=== PATIENT | female | born 1935 ===

== ENCOUNTER 2017-12-14 00:10 | Inpatient (IN) | payer MEDICARE ==
--- NOTE | 2017-12-13 12:32 | HISTORY AND PHYSICAL ---
DATE OF ADMISSION: December 14, 2017 IDENTIFICATION, CHIEF COMPLAINT Marylu is an 82-year-old woman with chief complaint of left hip pain. HISTORY OF PRESENT ILLNESS Patient has a longstanding history of hip arthritis progressively painful and debilitating, refractory to conservative care. Surgery is indicated to relieve symptoms after failure of nonoperative measures. PAST MEDICAL HISTORY Notable for history of coronary artery disease status post PR, history of blood transfusion associated with childbirth, COPD. ALLERGIES No known allergies. CURRENT MEDICATIONS 1. Metoprolol 50 mg b.i.d. 2. Lisinopril 2.5 mg p.o. q.day. 3. Aspirin 81 mg p.o. q.day. 4. Atorvastatin 40 mg p.o. q.day. 5. Colace 100 mg p.o. b.i.d. 6. Lasix 20 mg p.o. q.day. 7. Plavix 75 mg p.o. q.day. PAST SURGICAL HISTORY Notable for appendectomy. SOCIAL HISTORY Negative for tobacco and alcohol use. FAMILY HISTORY Notable for mother and father with coronary artery disease as well as one brother with coronary artery disease and hypertension. REVIEW OF SYSTEMS: Notable for remote history of polio. PHYSICAL EXAMINATION GENERAL: This is a healthy elderly female who appears stated age. HEENT: She is normocephalic, atraumatic. NECK: Supple. LUNGS: Clear. HEART: Regular. ABDOMEN: Soft. ORTHOPEDIC EXAM: The left hip is very stiff at limits of rotation. She has an antalgic gait. Hip girdle strength is grossly normal. Skin envelope is intact. Calves nontender. Neurovascular function is intact. RADIOGRAPHIC DATA Radiographs demonstrate end-stage hip arthritis. ASSESSMENT Left hip end-stage degenerative joint disease, progressively painful and debilitating, refractory to conservative care. PLAN Per patient request, we are going to proceed with hip replacement. Nature of the procedure, risks, benefits, the anticipated rehab course were reviewed as well as nonoperative alternatives. The risks of the procedure include, but are not limited to, , major medical or anesthetic complication, infection, neurovascular injury, blood transfusion, stiffness, scarring, fracture, tendon rupture, instability, leg length discrepancy, implant loosening, migration or failure, persistent or recurrent pain, need for additional surgery, and other unforeseen. She understands and wishes to proceed. Signed permit was placed in the chart. Preoperative medical clearance is obtained. No guarantees are given or implied. [facility]
[2017-12-13 15:31] LABS: INR 1.01
[2017-12-14] VITALS (23 sets, daily range): BP systolic 72–112; BP diastolic 45–74
[~2017-12-14] VITALS: Ht 154.9 cm; Wt 47.2 kg
[~2017-12-14 00:10] MED LIST: ACET-1966 PO; ASCO1CAP7 PO; ASPI81TA94 PO; ATOR40TA24 PO; CALC-515 PO; CLOP75TA43 PO; DOCU-416 PO; FURO20TA19 PO; LISI5TAB25 PO; METO-253 PO; OMEG-96 PO; [UNRECOGNIZED DRUG - OTHER] PO; [UNRECOGNIZED DRUG - OTHER] PO
[2017-12-14] MEDS ORDERED: DEXAMETHASONE SOD 4 MG/ML VIAL ONE (09:08)
[2017-12-14] MEDS ORDERED: PROPOFOL EMUL(*) 10MG/ML 20 ML 20 ML ONE (09:08)
[2017-12-14] MEDS ORDERED: LIDOCAINE MPF 1% 5 ML VIAL ONE (09:08)
[2017-12-14] MEDS ORDERED: KETAMINE HCL 200 MG/20 ML MDV ONE ×2 (09:09→12:10)
[2017-12-14] MEDS ORDERED: fentaNYL CITR 100 MCG/2 ML AMP ONE ×2 (09:09→12:57)
[2017-12-14] MEDS ORDERED: ONDANSETRON 4 MG/2 ML VIAL ONE (09:09)
[2017-12-14] MEDS: NORMOSOL R SOLN(*) 1000 ML BAG 1,000 ML IV PRN ×2 (09:14→14:31)
[2017-12-14] MEDS ORDERED: cloNIDine EPIDUR INJ 100MCG/ML 40 MCG, ROPIVACAINE 0.5% 20 ML VIAL 25 ML, EPINEPHrine H... INJ ONE (10:15)
[2017-12-14] MEDS ORDERED: FAMOTIDINE 20 MG TAB PO ONE (10:15)
[2017-12-14] MEDS ORDERED: PREGABALIN 75 MG CAPSULE PO ONE (10:15)
[2017-12-14] MEDS ORDERED: ceFAZolin(*) 1 GM VIAL 1 GM in NS(*) 0.9% 100 ML ADDVANT BAG 100 ML IVPB ONE (10:15)
[2017-12-14] MEDS ORDERED: TRANEXAMIC AC 1000 MG/10ML SDV 1,000 MG in DEXTROSE 5% 50 ML BAG 50 ML IV ONE (10:15)
[2017-12-14] MEDS ORDERED: ACETAMINOPHEN 500 MG TAB PO ONE (10:15)
[2017-12-14] MEDS ORDERED: LIDOCAINE/SOD BICARB 8.4% SYR ID ONE (10:15)
[2017-12-14] MEDS ORDERED: CELECOXIB 200 MG CAP PO ONE (10:15)
[2017-12-14] MEDS ORDERED: MIDAZOLAM 2 MG/2 ML VIAL IVP PRN (10:15)
[2017-12-14] MEDS ORDERED: ASPIRIN 81 MG ENTERIC COATED PO ONE (11:05)
[2017-12-14] MEDS ORDERED: ROPIVACAINE 0.2% 20 ML VIAL ONE (11:12)
[2017-12-14] MEDS ORDERED: MIDAZOLAM 2 MG/2 ML VIAL ONE (11:12)
[2017-12-14] MEDS ORDERED: SUGAMMADEX SOD 200 MG/2 ML SDV ONE (11:17)
[2017-12-14] MEDS ORDERED: ROCURONIUM BROM 10 MG/ML 10 ML ONE (11:17)
[2017-12-14] MEDS ORDERED: LACTATED RINGER 3000 ML BAG IR ONE (12:11)
[2017-12-14] MEDS ORDERED: ePHEDrine 25 MG/5 ML DISP.SYR IVP ONE (13:05)
--- NOTE | 2017-12-14 14:38 | RADIOLOGY IMAGING REPORT ---
FACILITY[place] [facility] [place]IENT NAME: Marylu Ruvalcaba : 1935 MR: [id number] V: [id number] EXAM DATE: ORDERING PHYSICIAN: JAYDON RENTERIA TECHNOLOGIST: Location: [facility] - [place] Patient: Marylu Ruvalcaba : 1935 Visit/Account:[id number] Date of Sevice: 12/14/2017 EXAMINATION: AP pelvis. HISTORY: Post left OZ. COMPARISON: None. FINDINGS: Single AP view of the lower pelvis and bilateral hips was obtained. New surgical changes of left OZ. The acetabular and femoral components demonstrate normal alignment. No periprosthetic fracture. Overlying soft tissue swelling with skin wilmer in place. Generalized osteopenia. Advanced degenerative changes at the right hip. IMPRESSION: New surgical changes of left ZO, with an unremarkable postoperative appearance. Report Dictated By: Ruiz Dawn MD at 12/14/2017 2:33 PM Report E-Signed By: Ruiz Dawn MD at 12/14/2017 2:34 PM WSN:[id number]
[2017-12-14] MEDS ORDERED: DIAZEPAM 5 MG TAB PO PRN (16:40)
[2017-12-14] MEDS ORDERED: BENZOCAINE/MENTHOL 1 EACH LOZG PO PRN (16:40)
[2017-12-14] MEDS ORDERED: APAP/HYDROCODONE 325/7.5 TAB PO PRN (16:40)
[2017-12-14] MEDS ORDERED: PROMETHAZINE 25 MG/ML 1 ML AMP IVP PRN (16:40)
[2017-12-14] MEDS ORDERED: FLUSH 10 ML SYR IVP PRN (16:40)
[2017-12-14] MEDS ORDERED: BISACODYL 10 MG SUPP PR PRN (16:40)
[2017-12-14] MEDS ORDERED: NORMOSOL R SOLN(*) 1000 ML BAG 1,000 ML IV PRN (16:40)
[2017-12-14] MEDS ORDERED: diphenhydrAMINE 50 MG/ML VIAL IVP PRN (16:40)
[2017-12-14] MEDS ORDERED: diphenhydrAMINE 25 MG CAP PO PRN (16:40)
[2017-12-14] MEDS ORDERED: ZOLPIDEM TARTRATE 5 MG TAB PO PRN (16:40)
[2017-12-14] MEDS ORDERED: MAGNESIUM HYDROXIDE* 30ML UDCP PO PRN (16:40)
--- NOTE | 2017-12-14 16:41 | Hospitalist Consultation ---
History of Present Illness Requesting Physician Dr. Haile Reason for Consult CAD, Hyperlipidemia Chief Complaint s/p left total hip replacement History of Present Illness She was admitted s/p left total hip replacement. It is reported the surgery went well and without complication. History Problems: (1) CAD (coronary artery disease) Status: Chronic (2) Hyperlipidemia Status: Chronic Home Meds Reported Medications Acetaminophen (TYLENOL) 325 Mg Tablet, 325 MG PO TID Y for PAIN, TAB 12/07/17 Clopidogrel Bisulfate (PLAVIX) 75 Mg Tablet, 1 TAB PO QDAY, TAB 12/07/17 Furosemide (LASIX) 20 Mg Tablet, 1 TAB PO QDAY, TAB 12/07/17 Docusate Sodium (COLACE) 100 Mg Capsule, 100 MG PO BID, CAPSULE 12/07/17 Atorvastatin Calcium (LIPITOR) 40 Mg Tablet, 1 TAB PO HS, TAB 12/07/17 Aspirin (ASPIRIN) 81 Mg Tab.chew, 81 MG PO QDAY, TAB.CHEW 12/07/17 Lisinopril (LISINOPRIL) 5 Mg Tablet, 2.5 MG PO QDAY, TAB 12/07/17 Metoprolol Tartrate (METOPROLOL TARTRATE) 50 Mg Tab, 1 TAB PO BID, TAB 12/07/17 Discontinued Reported Medications Calcium Carbonate (TUMS) 200 Mg Tab.chew, 200 MG PO BID, TAB.CHEW 12/07/17 Ascorbic Acid/Collagen Hydr (COLLAGEN PLUS VIT C CAPSULE) 1 Each Capsule, 1 EACH PO DAILY, CAPSULE 04/27/17 [Biorepair] No Conflict Check, PO DAILY 04/27/17 [Gsh 3] No Conflict Check, PO DAILY 04/27/17 Waldron-3 Fatty Acids/Fish Oil (OMEGA 3 1,000 MG SOFTGEL) 1 Each Capsule, 1 EACH PO QDAY, CAPSULE 04/27/17 Allergies: Coded Allergies: lactose (Verified Allergy, Intermediate, "SICK", 04/27/17) Patient History: FH: COPD (chronic obstructive pulmonary disease) FATHER FH: heart disease FATHER GRANDMA Hx Smoking: No Smoking Status: Never Smoker Exposure to Second Hand Smoke?: Yes ( USED TO) Caffeine Intake: Coffee Caffeine/Cups Per Day: 1-2 Hx Alcohol Use: No Hx Substance Use Disorder: No Social Drug Use: Never History of IV Drug Use: No Review of Systems All Systems Reviewed/Normal: Yes, Except as Noted Exam Vital Signs Vital Signs Date Time Temp Pulse Resp B/P (MAP) Pulse Ox O2 Delivery O2 Flow Rate FiO2 12/14/17 14:59 96 Nasal Cannula 1.0 12/14/17 14:59 97.6 95 16 106/60 (75) General Appearance: Alert, Awake, No Acute Distress Neuro: No Gross deficits Cardiovascular: Regular Rate and Rhythm Respiratory: No Respiratory Distress, Clear to Auscultation Psych: Alert & Oriented X3, Appropriate Mood & Affect Assessment and Plan Problems: (1) Status post total hip replacement, left Status: Acute Assessment & Plan: Followed by Dr. Haile. She will be placed on Aspirin 325mg daily for DVT prophylaxis. She has no history of DVT or PE. (2) CAD (coronary artery disease) Status: Chronic Assessment & Plan: She has history of CABG and stent was placed 05/2017. She is on chronic treatment with Plavix, Aspirin, Metoprolol, Lasix and Lisinopril. The Metoprolol and Lisinopril have been restarted with hold parameters. She stopped the Plavix one week ago. We will speak with Dr. Haile for approval to re-start Plavix. (3) Hyperlipidemia Status: Chronic Assessment & Plan: She is on chronic treatment with Atorvastatin. Venous Thromboembolism Antithrombotics Is Pt On Any Antithrombotics?: No Exam Sepsis Risk: No Definite Risk JAIME ADKINS SAMPLE CARD MAKER Dec 14, 2017 16:41
[2017-12-14] MEDS: CELECOXIB 200 MG CAP PO SCH (16:58)
--- NOTE | 2017-12-14 20:00 | OPERATIVE REPORT 1 ---
EVENT DATE: December 14, 2017 SURGEON: Sravan Haile MD ANESTHESIOLOGIST: Aaron Singleton MD ANESTHESIA: General plus spinal. DIESEL TECHNOLOGY INSTRUCTOR: YULY Castellanos PREOPERATIVE DIAGNOSIS Left hip degenerative joint disease. POSTOPERATIVE DIAGNOSES 1. Left hip degenerative joint disease. 2. Full-thickness, partial width abductor tendon insertion tear. PROCEDURES PERFORMED 1. Left total hip arthroplasty. 2. Repair of torn abductor tendon. ESTIMATED BLOOD LOSS 200 mL DRAINS None. SPECIMENS None. COMPLICATIONS None apparent. IMPLANTS USED [employer] system with a Tritanium 50 mm cluster hole shell with a Trident X3 zero- degree poly insert to accommodate a 36 mm head and a single Torx 6.5 cancellous bone screw, a SecurFit Max 132-degree neck angle, hip stem size 8, and a Biolox Delta Ceramic C-Taper femoral head size 36 mm standard neck length, also a 2.9 JuggerKnot anchor for tendon repair. INDICATIONS Marylu has intractable pain and disability related to severely arthritic hip. Surgery is indicated to relieve symptoms after failure of nonoperative measures. DESCRIPTION OF PROCEDURE Patient was taken to the operating room, placed supine on the operating table. Spinal block is administered by the anesthesiologist. General anesthesia is induced. Antibiotics and TXA are administered IV. Patient is positioned in the right lateral decubitus position on a well-padded pegboard. Pelvis is secured in a vertical position. All bony prominences and superficial nerves are well padded. Left hip girdle and lower extremity are prepped and draped in the usual sterile fashion for hip arthroplasty. A posterolateral approach is made, carried down through the skin and subcutaneous tissue down to the deep fascia. Fascia is incised over the tip of the trochanter, extended distally in line with the femur, proximally in line with the wilbert fibers. Wilbert fibers are split bluntly. Trochanteric bursa is excised. Interval between the abductor and external rotator is identified, and the abductor mechanism is protected with a blunt Hohmann. An L capsulotomy/tenotomy is made with the superior limb just above the piriformis, extending down to the trochanter, and then releasing the external rotators and the capsule off the posterior aspect of the femur. These are tagged with #2 Vicryl for later anatomic reattachment. The femoral head is dislocated. Due to the markedly superiorly eroded acetabulum, the femoral head is saved for later bone graft. The femur is translocated anteriorly. Kristin-acetabular retractors are placed with the tips down on bone. Labrum and pulvinar are excised. The level of the transverse acetabular ligament is identified, and fibrinous debris is curetted out of the superior aspect of the acetabulum where the head has ridden up and eroded. Good anterior and posterior alaniz are present. Taking care to maintain the appropriate height of the socket, reaming starts at 44 and works up to 50 where good capture of the anterior and posterior alaniz is obtained. A trial 50 is nice, but there is no superior support. The femoral head is then shaped with a saw to provide a structural graft superiorly to help support the cup. Additional graft from the femoral head is morselized for cancellous autograft. The surfaces are copiously lavaged, and the Tritanium cup is impacted in approximately 40 degrees of lateral opening and 15 degrees of anteversion using the transverse acetabular ligament, extracorporeal guide, and internal bony landmarks to guide socket placement. A shelf of solid cancellous bone is placed superiorly and secured by the cup. Additional graft is packed around this, and then a 6.5 Torx screw is used to achieve adjuvant fixation to make sure this is rock solid. Good fixation is achieved. The liner is impacted into the cleaned and dried shell. Femoral preparation is undertaken. The neck is resected with a cookie cutter. A Jv awl finds the canal. Tapered reaming is performed up to size 8. Nice endosteal contact obtained. Broaching starts at 6 and works up to 8, taking care to lateralize and assure appropriate anteversion. The 8 broach has nice fit and fill and stability. Trial reduction is performed. Good buddhism of the limb length and stability are achievable without undue tension on the sciatic nerve. The broach is removed. The actual stem is impacted and seats at the same position. Trial reduction is performed with various neck lengths, and the standard is felt to be ideal. Alcaraz taper is lavaged and dried. The standard Biolox head is impacted onto the Alcaraz taper. Joint is reduced. Next, the condition of the abductors is inspected. On entry into the wound, it is noted that there is a full-thickness mid-substance tear of the medius with minimal retraction. Bone was repaired in this region down to punctate bleeding bone, and then a 2.9 JuggerKnot anchor is placed. It has solid purchase. Free needle is used to pass Warren-Srinath type stitches up through the tendon, and after passing these stitches and placing the drill holes for reattachment of the posterior capsule and piriformis, all suture limbs are passed. These are then tied down with surgeon knots to reapproximate the capsule and the external rotators and to repair the abductor mechanism. A nice repair is achieved. The wound is copiously lavaged. The deep fascia is closed distally with #2 Ethibond, proximally with #2 Vicryl. The subcutaneous tissue is lavaged. Hemostasis is assured. Derm is closed with 3-0 Vicryl, skin with surgical wilmer. Xeroform and 4 x 4's were applied for a dry, sterile dressing, and a hip wrap. Patient is rolled supine. Abduction pillow is placed. She is awakened from anesthesia and taken to the recovery room in stable condition having tolerated the procedure well. PLAN Plan is for standard OZ rehab protocol, but will defer any abductor strengthening for eight weeks. She may still weigh bear as tolerated, and standard hip precautions are indicated. [facility]
[2017-12-14] MEDS: ceFAZolin(*) 1 GM VIAL 1 GM in NS(*) 0.9% 100 ML ADDVANT BAG 100 ML IV SCH (20:13)
[2017-12-14] MEDS: METOPROLOL TART 50 MG TAB PO SCH (21:00)
[2017-12-14] MEDS: ATORVASTATIN 40 MG TAB PO SCH (21:14)
[2017-12-15] VITALS (36 sets, daily range): BP systolic 77–120; BP diastolic 48–76
[2017-12-15] MEDS: ACETAMINOPHEN 325 MG TAB PO PRN ×4 (01:42→21:38)
[2017-12-15] MEDS: ceFAZolin(*) 1 GM VIAL 1 GM in NS(*) 0.9% 100 ML ADDVANT BAG 100 ML IV SCH ×2 (03:37→11:17)
[2017-12-15] MEDS: CELECOXIB 200 MG CAP PO SCH ×2 (07:55→17:23)
[2017-12-15] MEDS: LISINOPRIL 5 MG TAB PO SCH (09:00)
[2017-12-15] MEDS: METOPROLOL TART 50 MG TAB PO SCH ×2 (09:00→21:00)
[2017-12-15] MEDS ORDERED: NORMOSOL R IV ONE (09:35)
[2017-12-15] MEDS: CLOPIDOGREL BISULFATE 75MG TAB PO SCH (10:05)
[2017-12-15] MEDS: ASPIRIN 325 MG TAB PO SCH (10:05)
[2017-12-15] MEDS ORDERED: NS(*) 0.9% 1000 ML BAG 1,000 ML IV ONE (10:45)
[2017-12-15 11:15] LABS: PLATELET COUNT, AUTOMATED 266 K/uL (150-450)
--- NOTE | 2017-12-15 12:05 | Hospitalist Progress Note ---
Subjective Progress Notes Subjective She was admitted s/p hip replacement. She reports she feels fatigued today, she is tachycardic and hypotensive. She denies chest pain or SOB. Patient Complains of: Cardiovascular: No: Chest Pain Respiratory: No: Shortness of Breath Physical Exam Vital Signs Date Time Temp Pulse Resp B/P (MAP) Pulse Ox O2 Delivery O2 Flow Rate FiO2 12/15/17 10:09 100/60 (73) 12/15/17 07:48 91 12/15/17 07:40 98.4 95 16 Nasal Cannula 0.5 Intake and Output 12/16/17 07:00 Intake Total 1600 ml Output Total 320 ml Balance 1280 ml Intake Oral 1100 ml IV Total 500 ml Output Urine Total 320 ml # Voids 1 General Appearance: Alert, Awake, No Acute Distress Neuro: No Gross deficits Cardiovascular: Other (regular rhythm, tachycardia noted) Respiratory: No Respiratory Distress, Clear to Auscultation GI: Soft and Non-Tender Extremities: Perfused, No Edema Psych: Alert & Oriented X3, Appropriate Mood & Affect Result Diagram: 12/15/17 1107 12/15/17 1107 Assessment and Plan Problems: (1) Status post total hip replacement, left Status: Acute Assessment & Plan: Followed by Dr. Haile. She will be placed on Aspirin 325mg daily for DVT prophylaxis. She has no history of DVT or PE. (2) CAD (coronary artery disease) Status: Chronic Assessment & Plan: She has history of CABG and stent was placed 05/2017. She is on chronic treatment with Plavix, Aspirin, Metoprolol, Lasix and Lisinopril. The Metoprolol and Lisinopril have been restarted with hold parameters. She stopped the Plavix one week ago, but will be restarted today. (3) Hyperlipidemia Status: Chronic Assessment & Plan: She is on chronic treatment with Atorvastatin. (4) Anemia Status: Acute Assessment & Plan: She was noted to have heart rates in the 130's, systolic blood pressures were 80-90's. Her hemoglobin was found to be 7.3. She is agreeable for transfusion of 2 units PRBC's today. We will watch her fluid volume status, as she normally does take Lasix at home. Exam Sepsis Risk: No Definite Risk JAIME ADKINS ALLERGY NURSE Dec 15, 2017 12:05
[2017-12-15] MEDS ORDERED: NS(*) 0.9% 500 ML BAG 500 ML ONE (13:23)
[2017-12-15] MEDS: ATORVASTATIN 40 MG TAB PO SCH (21:38)
[2017-12-16] VITALS (7 sets, daily range): BP systolic 102–131; BP diastolic 68–89; Ht 154.9 cm; Wt 47.2 kg
[2017-12-16 05:58] LABS: PLATELET COUNT, AUTOMATED 230 K/uL (150-450)
[2017-12-16] MEDS: LISINOPRIL 5 MG TAB PO SCH (09:00)
[2017-12-16] MEDS: METOPROLOL TART 50 MG TAB PO SCH ×2 (09:02→20:45)
[2017-12-16] MEDS: CELECOXIB 200 MG CAP PO SCH ×2 (09:02→16:34)
[2017-12-16] MEDS: CLOPIDOGREL BISULFATE 75MG TAB PO SCH (09:02)
[2017-12-16] MEDS: ASPIRIN 325 MG TAB PO SCH (09:02)
--- NOTE | 2017-12-16 11:02 | Hospitalist Progress Note ---
Subjective Progress Notes Subjective She reports much improvement in symptoms after transfusion. She had no acute events overnight. Patient Complains of: Cardiovascular: No: Chest Pain Respiratory: No: Shortness of Breath Physical Exam Vital Signs Date Time Temp Pulse Resp B/P (MAP) Pulse Ox O2 Delivery O2 Flow Rate FiO2 12/16/17 10:18 115/76 (89) 12/16/17 09:05 94 12/16/17 07:31 98.4 100 17 Nasal Cannula 0.5 Intake and Output 12/17/17 00:59 Intake Total 600 ml Output Total 600 ml Balance 0 ml Intake Oral 600 ml Output Urine Total 600 ml General Appearance: Alert, Awake, No Acute Distress, Afebrile Neuro: No Gross deficits Cardiovascular: Regular Rate and Rhythm Respiratory: No Respiratory Distress, Clear to Auscultation Extremities: Perfused, No Edema Psych: Alert & Oriented X3, Appropriate Mood & Affect Result Diagram: 12/16/17 0531 12/16/17 0531 Assessment and Plan Problems: (1) Status post total hip replacement, left Status: Acute Assessment & Plan: Followed by Dr. Haile. She will be placed on Aspirin 325mg daily for DVT prophylaxis. She has no history of DVT or PE. (2) CAD (coronary artery disease) Status: Chronic Assessment & Plan: She has history of CABG and stent was placed 05/2017. She is on chronic treatment with Plavix, Aspirin, Metoprolol, Lasix and Lisinopril. The Metoprolol and Lisinopril have been restarted with hold parameters. She stopped the Plavix one week ago, but will be restarted today. (3) Hyperlipidemia Status: Chronic Assessment & Plan: She is on chronic treatment with Atorvastatin. (4) Anemia Status: Acute Assessment & Plan: On 12/15, she was noted to have heart rates in the 130's, systolic blood pressures were 80-90's. Her hemoglobin was found to be 7.3. She was transfused 2 units of PRBC's. Her Hemoglobin is 11.3 today. Exam Sepsis Risk: No Definite Risk JAIME ADKINS CELLOPHANE PRESS OPERATOR Dec 16, 2017 11:02
[2017-12-16] MEDS: ACETAMINOPHEN 325 MG TAB PO PRN ×2 (15:06→20:45)
[2017-12-16] MEDS: ATORVASTATIN 40 MG TAB PO SCH (20:45)
[2017-12-17 02:55] VITALS: BP 113/62
[2017-12-17 06:34] LABS: PLATELET COUNT, AUTOMATED 218 K/uL (150-450)
[2017-12-17] MEDS: CELECOXIB 200 MG CAP PO SCH (08:37)
[2017-12-17] MEDS: LISINOPRIL 5 MG TAB PO SCH (09:00)
[2017-12-17] MEDS: METOPROLOL TART 50 MG TAB PO SCH (09:00)
[2017-12-17] MEDS ORDERED: ASPIRIN 81 MG ENTERIC COATED PO SCH (09:00)
[2017-12-17] MEDS: CLOPIDOGREL BISULFATE 75MG TAB PO SCH (09:38)
--- NOTE | 2017-12-17 10:54 | Hospitalist Progress Note ---
Subjective Progress Notes Subjective She was admitted s/p hip replacement. She had no acute events overnight. Patient Complains of: Cardiovascular: No: Chest Pain Respiratory: No: Shortness of Breath Physical Exam Vital Signs Date Time Temp Pulse Resp B/P (MAP) Pulse Ox O2 Delivery O2 Flow Rate FiO2 12/17/17 09:24 93 Room Air 12/17/17 03:41 106 12/17/17 02:55 98.1 16 113/62 (79) Intake and Output 12/18/17 00:59 Intake Total 160 ml Balance 160 ml Intake Oral 160 ml # Voids 3 # Bowel Movements 1 General Appearance: Alert, Awake, No Acute Distress Neuro: No Gross deficits Cardiovascular: Regular Rate and Rhythm Respiratory: No Respiratory Distress, Clear to Auscultation Extremities: No Edema Psych: Alert & Oriented X3, Appropriate Mood & Affect Result Diagram: 12/17/17 0520 12/16/17 0531 Assessment and Plan Problems: (1) Status post total hip replacement, left Status: Acute Assessment & Plan: Followed by Dr. Haile. She will be placed on Aspirin for DVT prophylaxis. She has no history of DVT or PE. (2) CAD (coronary artery disease) Status: Chronic Assessment & Plan: She has history of CABG and stent was placed 05/2017. She is on chronic treatment with Plavix, Aspirin, Metoprolol, Lasix and Lisinopril. The Metoprolol and Lisinopril have been restarted with hold parameters. She stopped the Plavix one week prior to surgery, but has been restarted. (3) Hyperlipidemia Status: Chronic Assessment & Plan: She is on chronic treatment with Atorvastatin. (4) Anemia Status: Acute Assessment & Plan: On 12/15, she was noted to have heart rates in the 130's, systolic blood pressures were 80-90's. Her hemoglobin was found to be 7.3. She was transfused 2 units of PRBC's. Hgb stable currently. Continue to monitor CBC 's. Exam Sepsis Risk: No Definite Risk JAIME ADKINS REPLENISHMENT ANALYST Dec 17, 2017 10:54
== END 2017-12-17 10:10 | DRG 470 ==
LOC: OR 00:10 → MED 14:50
PROVIDERS: ADMIT Orthopaedic Surgery; ATTEND Orthopaedic Surgery
PROC: 0SRB04Z Replacement of Left Hip Joint with Ceramic on Polyethylene Synthetic Substitute, Open Approach (ICD-10-PCS; principal; 2017-12-14 11:26)
PROC: 0LQK0ZZ Repair Left Hip Tendon, Open Approach (ICD-10-PCS; 2017-12-14 11:26)
PROC: 30233N1 Transfusion of Nonautologous Red Blood Cells into Peripheral Vein, Percutaneous Approach (ICD-10-PCS; 2017-12-15)
DX: M16.12 Unilateral primary osteoarthritis, left hip (principal); D62 Acute posthemorrhagic anemia; I25.10 Atherosclerotic heart disease of native coronary artery without angina pectoris; S76.212A Strain of adductor muscle, fascia and tendon of left thigh, initial encounter; I25.2 Old myocardial infarction; I10 Essential (primary) hypertension; I95.9 Hypotension, unspecified; E78.5 Hyperlipidemia, unspecified; E73.9 Lactose intolerance, unspecified; J44.9 Chronic obstructive pulmonary disease, unspecified; Z79.82 Long term (current) use of aspirin; Z86.12 Personal history of poliomyelitis; Z95.1 Presence of aortocoronary bypass graft; Y83.8 Other surgical procedures as the cause of abnormal reaction of the patient, or of later complication, without mention of misadventure at the time of the procedure; Y79.3 Surgical instruments, materials and orthopedic devices (including sutures) associated with adverse incidents; Y92.239 Unspecified place in hospital as the place of occurrence of the external cause
CPT/HCPCS: 36415; 36430; 72170; 76942; 82040; 82247; 82310; 82374; 82435; 82565; 82947; 84075; 84132; 84155; 84295; 84450; 84460; 84520; 85025; 85610; 86850; 86900; 86901; 86920; 97161; C1713; C1776; J0171; J0690; J0735; J1100; J1885; J2001; J2250; J2405; J2704; J2795; J3010; J3490; J7030; J7040; J7050; P9016; Q0163

== ENCOUNTER 2017-12-17 10:10 | Inpatient (IN) | payer MEDICARE ==
[2017-12-16 14:01] VITALS: Ht 154.9 cm; Wt 52.6 kg
[~2017-12-17] VITALS: Ht 154.9 cm; Wt 52.6 kg
[2017-12-17] MEDS ORDERED: MAGNESIUM HYDROXIDE* 30ML UDCP PO PRN (10:24)
[2017-12-17] MEDS ORDERED: BISACODYL 10 MG SUPP PR PRN (10:24)
[2017-12-17] MEDS ORDERED: BENZOCAINE/MENTHOL 1 EACH LOZG PO PRN (10:24)
[2017-12-17] MEDS ORDERED: APAP/HYDROCODONE 325/7.5 TAB PO PRN (10:24)
[2017-12-17] MEDS ORDERED: DIAZEPAM 5 MG TAB PO PRN (10:28)
[2017-12-17 10:33] VITALS: BP 98/69
--- NOTE | 2017-12-17 10:41 | Consultant Pharmacy Review ---
Shop Tailor Review Medication Review Do All Mecications have a Diag: Yes Beers Criteria Medication 2014 Benzodiazapines (long acting): Diazepam (Q6H as needed for pain) Other General Cautions Lexicomp Interaction Analysis A = No known interaction C = Monitor therapy X = Avoid combination B = No action needed D = Consider therapy modification Drugs in this analysis: Acetaminophen; Aspirin; Bisacodyl; Cepacol (CAN); Lipitor; Lortab; Metoprolol; Milk of Magnesia [OTC]; Plavix; Prinivil; Valium * Drug-Drug Interactions D Bisacodyl Milk of Magnesia [OTC] (Antacids) D Lortab (HYDROcodone) Valium (MEDICAL ASSISTANT SECRETARY Depressants) C Aspirin (Agents with Antiplatelet Properties) Plavix (Agents with Antiplatelet Properties) Depends on International labeling C Aspirin (Salicylates) Plavix (Agents with Antiplatelet Properties) C Aspirin (Salicylates) Prinivil (Angiotensin-Converting Enzyme Inhibitors) B Acetaminophen Lortab (Opioid Analgesics) B Aspirin (Salicylates) Milk of Magnesia [OTC] (Antacids) Depends on Duration B Lipitor (AtorvaSTATin) Plavix (Clopidogrel) B Metoprolol Valium (DiazePAM) B Milk of Magnesia [OTC] (Antacids) Valium (DiazePAM) Pneumococcal Vaccine HX Pneumo Vac ([id number]): No HX Pneumo Vac (Pneumovax): No Comments Regarding the Review Patient is a candidate for Pneumococcal vaccination but may be refusing vaccination as she never gets influenza shot. If she is willing to receive she should get the Prevnar 13 before discharge. Please monitor patient for falls due to Lortab and Valium orders. Please re-evaluate the necessity of these medications every week to 2 weeks. She should not receive more than 3 gms of acetaminophen in 24 hours and has orders for both acetaminophen 650 mg and Lortab 7.5/325. MD Notified? MD Notified?: No NATALIO JOSE Dec 17, 2017 10:41
--- NOTE | 2017-12-17 12:35 | Medical Nutrition Therapy ---
Nutrition Anthropometrics Height (Inches): 61 (stated) Weight (Pounds): 104 (wt 12/16 on med unit) BMI: 19.6 Hawk Nutrition Score: Hawk Nutrition Risk Score: Dietary Referral Nutrition Risk Factors: Nutrition Risk Comment: Physical Findings Physical Appearance: lower end of desired range Skin Appearance Skin Appearance: Edema Edema Location Modifier: Edema Location: Type of Edema: Degree of Edema: Gastrointestinal Symptoms GI Symtoms: Tube Present: Bowel Sounds: Recent Bowel Pattern: Stool Characteristics: Nutritional Diagnosis Nutritional Risk Acuity 3: Fair Appetite, OR & > 80 yrs Past Medical History: CAD, CABG, stent x 1 Nutritional Acuity: 3-Mild Energy Requirement: 1100 Protein Requirement: 52 (1.1gm/kg) Fluid Requirement: 1175 (25ml/kg) Diet Type: Diet as Tolerated MIESHA/REG Nutrition Intervention: Cont diet as ordered, Encourage intake, Between meal supplement Drug: Diuretics Additional Diet Restrictions: PUT PROTEIN POWDER IN APPROPRIATE FOODS Diet Comment To RSA: CARLOS NUTR SUPPLEMENT Nutrition Monitoring & Eval Nutrition Goals: Eat 50-100% Meal RD Patient Assessment Time: [address] Assessment Type: RD Assessment Patient Nutrition Acuity: 3-Mild Follow Up Date: Dec 21, 2017 Nutritional Comment: 12/17 Pt admitted s/p hip replacement. Intake on med unit averaged 88% of small to regular portions. Alb depleted at 2.5 and pt is on low end of desired wt range. Will put protein powder in appropriate foods and offer nutr supplment to increased kcal and protein intake. Pt on K+ depleting duiretic on ZK+ was WNR at 4.1. Will cont to monitor and encourage intake. CLAY SAUCEDO Dec 17, 2017 12:35
--- NOTE | 2017-12-17 13:03 | OT ECF NOTE ---
Type of Note: Initial Note Primary Medical Diagnosis: Generalized weakness s/p left OZ Occupational Therapy Evaluation Date: 12/17/17 SUBJECTIVE: Prior Hospitalization: [facility] 12/14/17 thru 12/17/17. DOS: 12/14/[address] Haile Prior Level of Function: Modified Independent with all ADLs/IADLs Prior Living Status: Bi-level house, Spouse Community Services: No known needs Home Accessibility: All needs on one level, Tub/shower combination Equipment Owned: Rollator Toilet riser Extended tub bench Duplicating Machine Operator Medical Complications/Past Medical History: Hx of CABG with stent (2017) , CAD, Hyperlipidemia. Please refer to EMR for further details. Psychosocial Support: Spouse Pain Scale (0-10): None reported at time of evaluation OBJECTIVE: Strength: MMT: Right Left Shoulder Flexion WFL WFL Elbow Flexion WFL WFL Wrist Extension WFL WFL Dispute Resolution Specialist WFL WFL (5= normal, 4= good, 3= fair, 2= poor, 1= trace) ROM: Both upper extremities, WFL Functional Transfer: Assistive Device: Front wheeled walker, Gait belt Transfer Ability: Verbal cues, CGA ADL: Upper body dressing: Assistive device: None Upper body dressing ability: Minimum assistance Lower body dressing: Assistive device: Duplicating Machine Operator, Sock aid Lower body dressing ability: Moderate assistance. Pt with limited awareness for importance of LB AE for dressing. Toileting: Assistive device: Toileting ability: N/T Grooming/hygiene: Assistive device: Grooming ability: N/T Bathing: Assistive device: Bathing ability: N/T Standardized Assessment: Glenny Index of Activities of Daily Livin/20 at initial evaluation (). ASSESSMENT: Angel presents to [facility] with generalized weakness s/p L THR complicated by anemia and subsequent blood transfusion. She recalls 2/3 hip precautions but requires frequent v/c's for understanding and adherence. Currently, she requires increased assist for ADLs/IADLs. At [facility], she was (I) with all ADLs/IADLs. She will benefit from skilled OT services to optimize (I) with ADLs and activity tolerance for IADLs prior to discharge home. Problem List/Current Limitations: Pain Decreased strength Decreased ROM Generalized weakness Poor safety awareness Short Term Goals: 1) Pt will be Mod (I) LB dressing. 2) Pt will be SBA grooming/hygiene. 3) Pt will be SBA toilet task. 4) Pt will be SBA bathing. 5) Pt Glenny of ADLs score will improve by 2 points. 6) Pt will be educated on appropriate AE needs. Snf Goals: Return home Patient Goals: "walk better and do stairs" Rehabilitation Prognosis: Good Barriers to Discharge: Pain, Age, Adherence to posterior hip precautions PLAN: The patient will benefit from skilled occupational therapy services 5 times per week for 2 weeks including: Ther ex ADL training Safety training Ther act IADL training Transfer training Adaptive equip training Bed mobility Energy conservation Thank you for this referral. If you have any questions, concerns, or comments about this report or plan, please contact me at . Lulu Collins MS, OTR/L Occupational Therapist REJI
--- NOTE | 2017-12-17 15:01 | PT ECF NOTE ---
Type of Note: Initial Note Primary Medical Diagnosis: S/P L) OZ, WBAT Physical Therapy Evaluation Date: 12/17/17 SUBJECTIVE: Prior Hospitalization: [facility] 12/14/17-12/17/17 Prior Level of Function: Michelle with use of 4WW, assistance from spouse as needed Prior Living Status: Single level house, Spouse Community Services: No known needs Home Accessibility: 3 stairs with rails Equipment Owned: Rollator Medical Complications/Past Medical History: See EMR for details, CABG (May 2017) with stent placement Psychosocial Support: Supportive and son Pain Scale (0-10): 4/10 OBJECTIVE: Strength: Right Lower Extremity: DF: 4/5 Knee flexion: 4/5 Knee extension: 4/5 Hip flexion: NT Left Lower Extremity: DF: 4/5 Knee flexion: 3+/5 Knee extension: 3/5 Hip flexion: NT ROM: L LE hip ROM limited by posterior hip precautions Sensation: WNL Other Neuro findings: None Bed Mobility: Sue sit to supine Transfers: CGA with RW and verbal cues to prevent excessive hip flexion Gait: CGA with RW x55' Stairs: NT Gait Speed (0.6m/second cannot function independently): 0.2 m/sec ASSESSMENT: PT ECF eval complete. Pt is pleasant and eager to participate in therapy interventions. She requires verbal cues during STS transfers and transitions in order to prevent excessive hip flexion. Pt completed transfers with CGA and ambulated 55' with use of RW. Pt demonstrates antalgic gait pattern with mild path deviation, ambulating with a gait speed of 0.2 m/sec, indicating an increased risk of falls and need of assistance from others. The patient will benefit from skilled PT services in order to increase independence and safety prior to d/c home. Problem List/Current Limitations: Pain Decreased activity radha Decreased strength Decreased ROM Decreased balance Poor safety awareness Decreased problem solving Short Term Goals: 1: Pt to complete bed mobility with Michelle while adhering to posterior hip precautions 2: Pt to complete transfers with Michelle and least restrictive AD 3: Pt to ambulate 200' with SBA and least restrictive AD 4: Pt to asc/desc 4 stairs with railing and SBA 5: Pt to demonstrate adherence to posterior hip precautions with all functional mobility. Welt Insole Channeler Goals: Pt to discharge home with improved safety and decreased need of assistance from others Patient Goals: To get better Rehabilitation Prognosis: Good Barriers for Discharge: Difficulty recalling posterior hip precautions PLAN: The patient will benefit from skilled physical therapy services 5 times per week for 2 weeks including: Therapeutic Exercise Therapeutic Activities Transfer Training Gait Training Stair Training Manual Therapy Safety Training Neuromuscular Re-educ. Pt/Caregiver Training Bed Mobility Thank you for this referral. If you have any questions, concerns, or comments about this report or plan, please contact me at . Linda Cobb, PT, DPT [facility]
[2017-12-17 16:30] VITALS: BP 118/73
[2017-12-17] MEDS: ACETAMINOPHEN 325 MG TAB PO PRN ×2 (16:32→22:30)
[2017-12-17] MEDS: METOPROLOL TART 50 MG TAB PO SCH (20:19)
[2017-12-17] MEDS: ATORVASTATIN 40 MG TAB PO SCH (20:19)
[2017-12-17] MEDS: DOCUSATE SODIUM 100 MG CAP PO SCH (20:19)
[2017-12-18 05:52] LABS: PLATELET COUNT, AUTOMATED 287 K/uL (150-450)
[2017-12-18 08:04] VITALS: BP 110/70
[2017-12-18] MEDS: FUROSEMIDE 20 MG TAB PO SCH (08:42)
[2017-12-18] MEDS: METOPROLOL TART 50 MG TAB PO SCH ×2 (08:42→20:59)
[2017-12-18] MEDS: LISINOPRIL 5 MG TAB PO SCH (08:43)
[2017-12-18] MEDS: ASPIRIN 325 MG ENTERIC COATED PO SCH (08:45)
[2017-12-18] MEDS: DOCUSATE SODIUM 100 MG CAP PO SCH ×2 (08:45→20:59)
[2017-12-18] MEDS: CLOPIDOGREL BISULFATE 75MG TAB PO SCH (08:45)
[2017-12-18] MEDS ORDERED: ASPIRIN 81 MG CHEW CHEW SCH (09:00)
[2017-12-18] MEDS: ACETAMINOPHEN 325 MG TAB PO PRN ×2 (13:33→20:59)
[2017-12-18 15:24] VITALS: BP 113/66
[2017-12-18] MEDS: ATORVASTATIN 40 MG TAB PO SCH (20:59)
[2017-12-19] MEDS: ACETAMINOPHEN 325 MG TAB PO PRN ×2 (00:59→20:20)
[2017-12-19 06:12] LABS: PLATELET COUNT, AUTOMATED 294 K/uL (150-450)
[2017-12-19 07:58] VITALS: BP 125/73
[2017-12-19] MEDS: METOPROLOL TART 50 MG TAB PO SCH ×2 (09:00→20:20)
[2017-12-19] MEDS: FUROSEMIDE 20 MG TAB PO SCH (09:00)
[2017-12-19] MEDS: LISINOPRIL 5 MG TAB PO SCH (09:00)
[2017-12-19] MEDS: ASPIRIN 325 MG ENTERIC COATED PO SCH (09:04)
[2017-12-19] MEDS: CLOPIDOGREL BISULFATE 75MG TAB PO SCH (09:04)
[2017-12-19] MEDS: DOCUSATE SODIUM 100 MG CAP PO SCH ×2 (09:04→20:20)
[2017-12-19 15:52] VITALS: BP 109/78
[2017-12-19 20:10] VITALS: BP 108/75
[2017-12-19] MEDS: ATORVASTATIN 40 MG TAB PO SCH (20:20)
[2017-12-20] MEDS: ACETAMINOPHEN 325 MG TAB PO PRN ×4 (01:52→20:43)
[2017-12-20 06:06] LABS: PLATELET COUNT, AUTOMATED 350 K/uL (150-450)
[2017-12-20 08:40] VITALS: BP 107/66
[2017-12-20] MEDS: DOCUSATE SODIUM 100 MG CAP PO SCH ×2 (09:00→20:43)
[2017-12-20] MEDS: METOPROLOL TART 50 MG TAB PO SCH ×2 (09:00→20:41)
[2017-12-20] MEDS: FUROSEMIDE 20 MG TAB PO SCH (09:00)
[2017-12-20] MEDS: LISINOPRIL 5 MG TAB PO SCH (09:00)
[2017-12-20] MEDS: CLOPIDOGREL BISULFATE 75MG TAB PO SCH (09:11)
[2017-12-20] MEDS: ASPIRIN 325 MG ENTERIC COATED PO SCH (09:11)
[2017-12-20 17:05] VITALS: BP 105/73
[2017-12-20 20:30] VITALS: BP 106/68
[2017-12-20] MEDS: ATORVASTATIN 40 MG TAB PO SCH (20:43)
[2017-12-21] MEDS: ACETAMINOPHEN 325 MG TAB PO PRN ×3 (02:13→20:39)
--- NOTE | 2017-12-21 06:46 | HISTORY AND PHYSICAL ---
DATE OF ADMISSION: December 14, 2017 IDENTIFICATION, CHIEF COMPLAINT Marylu is an 82-year-old woman with chief complaint of left hip pain. HISTORY OF PRESENT ILLNESS Patient has a longstanding history of hip arthritis progressively painful and debilitating, refractory to conservative care. Surgery is indicated to relieve symptoms after failure of nonoperative measures. PAST MEDICAL HISTORY Notable for history of coronary artery disease status post [place], history of blood transfusion associated with childbirth, COPD. ALLERGIES No known allergies. CURRENT MEDICATIONS 1. Metoprolol 50 mg b.i.d. 2. Lisinopril 2.5 mg p.o. q.day. 3. Aspirin 81 mg p.o. q.day. 4. Atorvastatin 40 mg p.o. q.day. 5. Colace 100 mg p.o. b.i.d. 6. Lasix 20 mg p.o. q.day. 7. Plavix 75 mg p.o. q.day. PAST SURGICAL HISTORY Notable for appendectomy. SOCIAL HISTORY Negative for tobacco and alcohol use. FAMILY HISTORY Notable for mother and father with coronary artery disease as well as one brother with coronary artery disease and hypertension. REVIEW OF SYSTEMS: Notable for remote history of polio. PHYSICAL EXAMINATION GENERAL: This is a healthy elderly female who appears stated age. HEENT: She is normocephalic, atraumatic. NECK: Supple. LUNGS: Clear. HEART: Regular. ABDOMEN: Soft. ORTHOPEDIC EXAM: The left hip is very stiff at limits of rotation. She has an antalgic gait. Hip girdle strength is grossly normal. Skin envelope is intact. Calves nontender. Neurovascular function is intact. RADIOGRAPHIC DATA Radiographs demonstrate end-stage hip arthritis. ASSESSMENT Left hip end-stage degenerative joint disease, progressively painful and debilitating, refractory to conservative care. PLAN Per patient request, we are going to proceed with hip replacement. Nature of the procedure, risks, benefits, the anticipated rehab course were reviewed as well as nonoperative alternatives. The risks of the procedure include, but are not limited to, , major medical or anesthetic complication, infection, neurovascular injury, blood transfusion, stiffness, scarring, fracture, tendon rupture, instability, leg length discrepancy, implant loosening, migration or failure, persistent or recurrent pain, need for additional surgery, and other unforeseen. She understands and wishes to proceed. Signed permit was placed in the chart. Preoperative medical clearance is obtained. No guarantees are given or implied. D/T: [id number] JOHNNY/DODIE CC: H&P ADDENDUM The above issues are resolving. Patient requires senior care care and/or skilled rehabilitation. Patient is ready for transfer to Extended Care. Any change in condition is described below. [facility]
[2017-12-21 08:00] VITALS: BP 111/77
[2017-12-21] MEDS: ASPIRIN 325 MG ENTERIC COATED PO SCH (08:47)
[2017-12-21] MEDS: CLOPIDOGREL BISULFATE 75MG TAB PO SCH (08:47)
[2017-12-21] MEDS: DOCUSATE SODIUM 100 MG CAP PO SCH ×2 (08:47→08:50)
[2017-12-21] MEDS: LISINOPRIL 5 MG TAB PO SCH (08:56)
[2017-12-21] MEDS: FUROSEMIDE 20 MG TAB PO SCH (08:56)
[2017-12-21] MEDS: METOPROLOL TART 50 MG TAB PO SCH ×2 (08:56→20:39)
--- NOTE | 2017-12-21 09:45 | Medical Nutrition Therapy ---
Nutrition Anthropometrics Height (Inches): 61.00 Height (Calculated Centimeters: 154.140306 Weight (Pounds): 116 Weight (Calculated Kilograms): 52.617 BMI: 19.6 Hawk Nutrition Score: Adequate Hawk Nutrition Risk Score: 18 Dietary Referral Nutrition Risk Factors: Nutrition Risk Comment: Physical Findings Physical Appearance: lower end of desired range Skin Appearance Skin Appearance: Edema Edema Location Modifier: Left Edema Location: Leg Type of Edema: Degree of Edema: Gastrointestinal Symptoms GI Symtoms: Tube Present: Bowel Sounds: Recent Bowel Pattern: Stool Characteristics: Nutritional Diagnosis Nutritional Risk Acuity 3: Fair Appetite, OR & > 80 yrs Past Medical History: CAD, CABG, stent x 1 Nutritional Acuity: 3-Mild Energy Requirement: 1100 Protein Requirement: 52 (1.1gm/kg) Fluid Requirement: 1175 (25ml/kg) Diet Type: Diet as Tolerated MIESHA/REG Nutrition Intervention: Cont diet as ordered, Encourage intake, Between meal supplement Drug: Diuretics Additional Diet Restrictions: PUT PROTEIN POWDER IN APPROPRIATE FOODS Diet Comment To RSA: CARLOS NUTR SUPPLEMENT Nutrition Monitoring & Eval Nutrition Goals: Eat 50-100% Meal Nutrition Follow-Up: Good Intake RD Patient Assessment Time: [address] Assessment Type: RD Re-Assessment Patient Nutrition Acuity: 3-Mild Follow Up Date: Dec 28, 2017 Nutritional Comment: 12/17 Pt admitted s/p hip replacement. Intake on med unit averaged 88% of small to regular portions. Alb depleted at 2.5 and pt is on low end of desired wt range. Will put protein powder in appropriate foods and offer nutr supplment to increased kcal and protein intake. Pt on K+ depleting duiretic on ZK+ was WNR at 4.1. Will cont to monitor and encourage intake. ROGELIO 12/21 Pt on regular diet and intake averaged 75% past 3 days. Wt is up to 116#. Pt weighed 104# on med unit 12/16 and 113# on ECF 12/16. Believe wt gain id r/t difference in scale plus fluids. Pt is on a duiretic with non-pitting edema to leg. Anticipate wt loss when edema resolved. CLAY SAUCEDO Dec 21, 2017 09:45
[2017-12-21 16:20] VITALS: BP 99/72
[2017-12-21 19:50] VITALS: BP 116/76
[2017-12-21] MEDS: ATORVASTATIN 40 MG TAB PO SCH (20:39)
[2017-12-22] MEDS: ACETAMINOPHEN 325 MG TAB PO PRN ×3 (02:32→20:52)
[2017-12-22 08:00] VITALS: BP 104/61
[2017-12-22] MEDS: ASPIRIN 325 MG ENTERIC COATED PO SCH (08:45)
[2017-12-22] MEDS: CLOPIDOGREL BISULFATE 75MG TAB PO SCH (08:45)
[2017-12-22] MEDS: LISINOPRIL 5 MG TAB PO SCH (09:00)
[2017-12-22] MEDS: DOCUSATE SODIUM 100 MG CAP PO SCH ×2 (09:00→20:51)
[2017-12-22] MEDS: METOPROLOL TART 50 MG TAB PO SCH ×2 (09:00→20:52)
[2017-12-22] MEDS: FUROSEMIDE 20 MG TAB PO SCH (09:00)
[2017-12-22 12:27] VITALS: BP 119/80
[2017-12-22] MEDS ORDERED: ASPI-764 PO (12:35)
--- NOTE | 2017-12-22 12:47 | Hospitalist Progress Note ---
Subjective Progress Notes Subjective Patient complains of some LE edema. She has not been getting her Lasix daily due to BP parameters. Physical Exam Vital Signs Date Time Temp Pulse Resp B/P (MAP) Pulse Ox O2 Delivery O2 Flow Rate FiO2 12/22/17 12:27 109 12/22/17 08:00 94 Room Air 12/22/17 08:00 97.9 16 104/61 (75) Intake and Output 12/23/17 07:00 Intake Total 360 ml Balance 360 ml Intake Oral 360 ml # Voids 1 General Appearance: Alert, Awake, No Acute Distress, Afebrile Neuro: No Gross deficits Eyes: PERRLA Cardiovascular: Other (Tachy, regular. Pulse counted at 126 resting in her chair.) Respiratory: Clear to Auscultation GI: Soft and Non-Tender Extremities: Warm, Perfused, Other (1+ edema bilaterally.) Psych: Appropriate Mood & Affect Result Diagram: 12/20/17 0533 Assessment and Plan Problems: (1) Tachycardia Status: Acute Assessment & Plan: Will recheck labs and get an EKG. Patient is asymptomatic. (2) Status post total hip replacement, left Status: Acute Assessment & Plan: On ASA 325mg daily for DVT prophylaxis. (3) CAD (coronary artery disease) Status: Chronic Assessment & Plan: She has history of CABG and stent was placed 05/2017. She is on chronic treatment with Plavix, Aspirin, Metoprolol, Lasix and Lisinopril. Her meds have been restarted with hold parameters. She stopped the Plavix one week prior to surgery, but has been restarted. (4) Hyperlipidemia Status: Chronic Assessment & Plan: She is on chronic treatment with Atorvastatin. (5) Anemia Status: Acute Assessment & Plan: On 12/15, she was noted to have heart rates in the 130's, systolic blood pressures were 80-90's. Her hemoglobin was found to be 7.3. She was transfused 2 units of PRBC's. She is once again tachycardic. Will repeat her CBC today. Time Spent on Plan of Care: < 30 min TRISTAN MARINA MD Dec 22, 2017 12:47
[2017-12-22 14:15] LABS: PLATELET COUNT, AUTOMATED 433 K/uL (150-450)
--- NOTE | 2017-12-22 14:57 | EKG ---
FACILITY: [facility] PATIENT NAME: NENA PAEZ : [id number] MR: [id number] V: [id number] EXAM DATE: ORDERING PHYSICIAN: DEN ASHRAF TECHNOLOGIST: JUANA Mireles Reason : Blood Pressure : / mmHG Vent. Rate : 101 BPM Atrial Rate : 101 BPM P-R Int : 132 ms QRS Dur : 076 ms QT Int : 336 ms P-R-T Axes : 005 -12 049 degrees QTc Int : 435 ms Sinus tachycardia Low voltage QRS Inferior infarct , age undetermined Abnormal ECG No previous ECGs available Referred By: Confirmed By:
[2017-12-22 16:55] VITALS: BP 119/78
[2017-12-22] MEDS: ATORVASTATIN 40 MG TAB PO SCH (20:51)
[2017-12-23] MEDS: ACETAMINOPHEN 325 MG TAB PO PRN ×2 (02:11→20:34)
[2017-12-23 08:41] VITALS: BP 115/80
[2017-12-23] MEDS: CLOPIDOGREL BISULFATE 75MG TAB PO SCH (08:46)
[2017-12-23] MEDS: ASPIRIN 325 MG ENTERIC COATED PO SCH (08:46)
[2017-12-23] MEDS ORDERED: METOPROLOL TART 50 MG TAB PO SCH (09:00)
[2017-12-23] MEDS: FUROSEMIDE 20 MG TAB PO SCH (09:00)
[2017-12-23] MEDS: DOCUSATE SODIUM 100 MG CAP PO SCH ×2 (09:00→20:31)
[2017-12-23] MEDS: LISINOPRIL 5 MG TAB PO SCH (09:00)
[2017-12-23] MEDS: METOPROLOL TART 50 MG TAB PO SCH ×2 (09:43→20:31)
--- NOTE | 2017-12-23 11:05 | OT ECF NOTE ---
Type of Note: Initial Note Primary Medical Diagnosis: Generalized weakness s/p left OZ Occupational Therapy Evaluation Date: 12/17/17 SUBJECTIVE: Prior Hospitalization: [facility] 12/14/17 thru 12/17/17. DOS: 12/14/[address] Haile Prior Level of Function: Modified Independent with all ADLs/IADLs Prior Living Status: Bi-level house, Spouse Community Services: No known needs Home Accessibility: All needs on one level, Tub/shower combination Equipment Owned: Rollator Toilet riser Extended tub bench Spindle Frame Carver Medical Complications/Past Medical History: Hx of CABG with stent (2017) , CAD, Hyperlipidemia. Please refer to EMR for further details. Psychosocial Support: Spouse Pain Scale (0-10): None reported at time of evaluation OBJECTIVE: Strength: MMT: Right Left Shoulder Flexion WFL WFL Elbow Flexion WFL WFL Wrist Extension WFL WFL Animal Hospital Clerk WFL WFL (5= normal, 4= good, 3= fair, 2= poor, 1= trace) ROM: Both upper extremities, WFL Functional Transfer: Assistive Device: 4WW Transfer Ability: Modified Independent ADL: Upper body dressing: Assistive device: Independent Lower body dressing: Assistive device: Spindle Frame Carver, Sock aid, Long handled shoe horn Lower body dressing ability: Modified Independent Toileting: Assistive device: Toilet riser Toileting ability: Modified Independent Grooming/hygiene: Assistive device: Standing Grooming ability: Independent Bathing: Assistive device: Extended tub transfer bench Bathing ability: SBA Standardized Assessment: Glenny Index of Activities of Daily Livin/20 at initial evaluation (). 20/20 at discharge (12/23/17). ASSESSMENT: Angel presented to [facility] with generalized weakness s/p L THR complicated by anemia and subsequent blood transfusion. She recall3 /3 posterior hip precautions and demonstrates good carryover and adherence with ADLs/IADLs. She has met all skilled OT goals. All questions/concerns have been answered. Problem List/Current Limitations: Pain Decreased strength Decreased ROM Generalized weakness Poor safety awareness Short Term Goals: 1) Pt will be Mod (I) LB dressing. GOAL MET 2) Pt will be SBA grooming/hygiene. GOAL MET 3) Pt will be SBA toilet task. GOAL MET 4) Pt will be SBA bathing. GOAL MET 5) Pt Glenny of ADLs score will improve by 2 points. GOAL MET 6) Pt will be educated on appropriate AE needs. GOAL MET Power Reactor Supervisor Goals: Return home Patient Goals: "walk better and do stairs" Rehabilitation Prognosis: Good Barriers to Discharge: Pain, Age, Adherence to posterior hip precautions PLAN: The patient will discharge home tomorrow with services and assist from family. Information provided for where to obtain a sock aid/herbarium curator. Thank you for this referral. If you have any questions, concerns, or comments about this report or plan, please contact me at . Lulu Collisn MS, OTR/L Occupational Therapist [facility]
[2017-12-23 12:52] VITALS: BP 106/73
--- NOTE | 2017-12-23 13:13 | PT ECF NOTE ---
Type of Note: Discharge Summary Primary Medical Diagnosis: S/P L) OZ, WBAT Physical Therapy Discharge Date: 12/23/17 SUBJECTIVE: Prior Hospitalization: [facility] 12/14/17-12/17/17 Prior Level of Function: Hugo with use of 4WW, assistance from spouse as needed Prior Living Status: Single level house, Spouse Community Services: No known needs Home Accessibility: 3 stairs with rails Equipment Owned: Rollator Medical Complications/Past Medical History: See EMR for details, CABG (May 2017) with stent placement Psychosocial Support: Supportive and son Pain Scale (0-10): 4/10 OBJECTIVE: Strength: Right Lower Extremity: DF: 4/5 Knee flexion: 4/5 Knee extension: 4/5 Hip flexion: NT Left Lower Extremity: DF: 4/5 Knee flexion: 3+/5 Knee extension: 3+/5 Hip flexion: NT ROM: L LE hip ROM limited by posterior hip precautions Sensation: WNL Other Neuro findings: None Bed Mobility: Hugo Transfers: Hugo with 4WW Gait: SBA 2x200' with 4WW Stairs: SBA x 4 stairs Gait Speed (0.6m/second cannot function independently): 0.52 m/sec ASSESSMENT: The patient has met all PT goals and is safe to d/c home from a mobility stand point when medically appropriate. The patient has demonstrated increased independence and tolerance to functional mobility. She will d/c home with assistance from her spouse and [facility] services. Problem List/Current Limitations: Pain Decreased activity radha Decreased strength Decreased ROM Decreased balance Poor safety awareness Decreased problem solving Short Term Goals: (met) 1: Pt to complete bed mobility with Hugo while adhering to posterior hip precautions 2: Pt to complete transfers with Hugo and least restrictive AD 3: Pt to ambulate 200' with SBA and least restrictive AD 4: Pt to asc/desc 4 stairs with railing and SBA 5: Pt to demonstrate adherence to posterior hip precautions with all functional mobility. Laborer Rags Goals: Pt to discharge home with improved safety and decreased need of assistance from others Patient Goals: To get better PLAN: The patient will d/c home with [facility] services and assistance from her spouse Thank you for this referral. If you have any questions, concerns, or comments about this report or plan, please contact me at . Linda Cobb, PT, DPT MTDD
[2017-12-23 16:55] VITALS: BP 112/70
[2017-12-23] MEDS: ATORVASTATIN 40 MG TAB PO SCH (20:31)
[2017-12-24] MEDS: ACETAMINOPHEN 325 MG TAB PO PRN (01:11)
[2017-12-24 08:00] VITALS: BP 114/72
[2017-12-24] MEDS: DOCUSATE SODIUM 100 MG CAP PO SCH (09:00)
[2017-12-24] MEDS: FUROSEMIDE 20 MG TAB PO SCH (09:00)
[2017-12-24] MEDS: LISINOPRIL 5 MG TAB PO SCH (09:00)
[2017-12-24] MEDS: METOPROLOL TART 50 MG TAB PO SCH (09:40)
[2017-12-24] MEDS: ASPIRIN 325 MG ENTERIC COATED PO SCH (09:40)
[2017-12-24] MEDS: CLOPIDOGREL BISULFATE 75MG TAB PO SCH (09:40)
--- NOTE | 2017-12-28 23:03 | DISCHARGE SUMMARY ---
DATE OF ADMISSION: December 17, 2017 DATE OF DISCHARGE: December 24, 2017 REASON FOR ADMISSION Patient recovering from recent hip replacement surgery, admitted to the extended care facility for ongoing safety and mobility training prior to discharge. HOSPITAL COURSE Patient makes good steady progress. At time of discharge, her wound condition is benign. She is cleared by Therapy for safety and mobility, and she is comfortable on p.o. pain medication. She is voiding and stooling normally. DISPOSITION Discharge home. Follow up with Dr. Wise in the [facility] in one week. DISCHARGE MEDICATIONS Include preop home meds at usual doses and: 1. Hydrocodone for pain. 2. Aspirin 325 mg p.o. q. day times one month for DVT prophylaxis. CONDITION ON DISCHARGE Stable. DISCHARGE INSTRUCTIONS 1. Diet is ad bertha. 2. Posterior hip precautions. 3. Weight bear as tolerated with assistive device. 4. Outpatient PT. 5. Daily dry, sterile dressing change if there is any drainage remaining. 6. Call immediately for fevers, chills, wound problems, uncontrolled pain, or other concerns. REJI
== END 2017-12-24 11:50 | disposition home health service (06) | DRG 561 ==
LOC: ECF 10:10
PROVIDERS: ADMIT Orthopaedic Surgery; ATTEND Orthopaedic Surgery
DX: Z47.1 Aftercare following joint replacement surgery (principal); I25.10 Atherosclerotic heart disease of native coronary artery without angina pectoris; I25.2 Old myocardial infarction; Z95.1 Presence of aortocoronary bypass graft; Z86.12 Personal history of poliomyelitis; D64.9 Anemia, unspecified; J44.9 Chronic obstructive pulmonary disease, unspecified; R00.0 Tachycardia, unspecified; E78.5 Hyperlipidemia, unspecified; Z79.82 Long term (current) use of aspirin
CPT/HCPCS: 36415; 82310; 82374; 82435; 82565; 82947; 84132; 84295; 84520; 85025; 93005; 97161; 97165